=== PATIENT | female | born 1960 | race Caucasian/White ===

== ENCOUNTER 2020-09-19 07:30 | Outpatient (CLI) | payer OTHER, SELFPAY ==
--- NOTE | ~2020-09-19 | DEXA_ITS ---
Bone Density Report Name: Xi Bennett Age: 60 Sex: Female Ethnicity: White Date of : 1960 Indication: osteopenia; monitoring treatment; height loss; hysterectomy; Referring Provider: Kathleen, Rita Foss Study: Bone densitometry was performed. Exam Date: September 19, 2020 Accession number: [id number] Bone Density: Region BMD T-score Z-score Classification AP Spine (L1-L4) 0.810 -2.2 -0.6 Osteopenia Femoral Neck (Left) 0.760 -0.8 0.6 Normal Total Hip (Left) 0.852 -0.7 0.3 Normal Total Hip Bilateral Avg 0.823 -0.9 0.1 Normal Femoral Neck (Right) 0.664 -1.7 -0.3 Osteopenia Total Hip (Right) 0.792 -1.2 -0.2 Osteopenia World Health Organization criteria for BMD impression classify patients as: Normal (T-score at or above -1.0), Osteopenia (T-score between -1.0 and -2.5), or Osteoporosis (T-score at or below -2.5). 10-year Fracture Risk: FRAX not reported because: Treated for osteoporosis Previous Exams: Region Exam Age BMD T-score BMD Change BMD Change Date g/cm2 vs Baseline vs Previous AP Spine(L1-L4) 09/19/2020 60 0.810 -2.2 0.040(5.2%)# 0.027(3.5%)* 07/08/2017 56 0.783 -2.4 0.013(1.6%)# -0.040(-4.9%)* 05/02/2015 54 0.824 -2.0 0.053(6.9%)# 0.053(6.9%)# 03/08/2013 52 0.771 -2.5 Total Hip(Left) 09/19/2020 60 0.852 -0.7 -0.015(-1.8%)# 0.010(1.2%) 07/08/2017 56 0.841 -0.8 -0.026(-2.9%)# -0.029(-3.3%)* 05/02/2015 54 0.870 -0.6 0.004(0.4%)# 0.004(0.4%)# 03/08/2013 52 0.867 -0.6 Total Hip(Right) 09/19/2020 60 0.792 -1.2 -0.017(-2.2%)# -0.003(-0.4%) 07/08/2017 56 0.795 -1.2 -0.014(-1.8%)# -0.019(-2.3%) 05/02/2015 54 0.814 -1.1 0.004(0.5%)# 0.004(0.5%)# 03/08/2013 52 0.810 -1.1 *Denotes significance at 95% confidence level, LSC for AP Spine = 0.022 g/cm2, LSC for Total Hip = 0.027 g/cm2 Clinical Information Provided by Patient: Is being treated for osteoporosis Has used the following medications: Evista (i.e. raloxifene), Vitamin D, Calcium Has the following medical conditions: Hysterectomy Patient maximum height was 68 Menopause Age: 40 No regular weight bearing exercise Onset of menses at age 11 Number of children 0 Impression: The patient has low bone mass, based on the Total Spine T-score. No significant bone loss was observed. Discussion: PATIENT UNDER TREATMENT WITH NO SIGNIFICANT BMD LOSS SINCE LAST EXAM. In an untreated patient, BMD typically dec
== END 2020-09-19 07:31 | disposition home or self-care (01) ==
PROVIDERS: PCP Internal Medicine; Visit Provider Nurse Practitioner Obstetrics & Gynecology
DX: Z13.820 Encounter for screening for osteoporosis (principal); M85.88 Other specified disorders of bone density and structure, other site; M85.851 Other specified disorders of bone density and structure, right thigh
CPT/HCPCS: 77080

== ENCOUNTER 2020-10-18 07:30 | Outpatient (CLI) | payer OTHER, SELFPAY ==
--- NOTE | ~2020-10-18 | MM_ITS ---
EXAMINATION: MM screening [facility] BI w marija HISTORY: Screening mammogram TECHNIQUE: Craniocaudal and mediolateral oblique 3-D tomosynthesis images were obtained and synthetic 2-D images were generated. CAD analysis was submitted and interpreted. COMPARISON: 08/10/2019, 08/02/2018, 07/08/2017 BREAST PARENCHYMAL COMPOSITION: The breasts are almost entirely fatty. FINDINGS: There is no evidence of suspicious mass, calcification, or architectural distortion to sugg est malignancy in either breast. There has been no suspicious interval change. IMPRESSION: 1. No mammographic evidence of malignancy. 2. Recommend routine screening mammography in one year. BI-RADS Category 1: Negative Reviewed, dictated and finalized at location A.
== END 2020-10-18 07:31 | disposition home or self-care (01) ==
LOC: ANHIMG 07:35
PROVIDERS: PCP Internal Medicine; Visit Provider Nurse Practitioner Obstetrics & Gynecology
DX: Z12.31 Encounter for screening mammogram for malignant neoplasm of breast (principal)
CPT/HCPCS: 77063; 77067

== ENCOUNTER 2021-10-06 17:06 | Outpatient (CLI) | payer OTHER, SELFPAY ==
--- NOTE | ~2021-10-06 | XR_ITS ---
EXAMINATION: XR knee LT min 4V DATE: 10/06/2021 17:38 INDICATION: Right knee pain TECHNIQUE: Four views of the right knee were obtained. COMPARISON: None. FINDINGS: Alignment is normal. No fracture or osteochondral lesion. There is mild tricompartmental os teoarthritis characterized by tiny marginal osteophytes. There is moderate narrowing of the lateral c ompartment. Soft tissues are unremarkable. IMPRESSION: 1. Osteoarthritis without acute osseous abnormality. Reviewed, dictated and finalized at location B.
--- NOTE | ~2021-10-06 | XR_ITS ---
EXAMINATION: XR knee RT min 4V DATE: 10/06/2021 17:38 INDICATION: Right knee pain TECHNIQUE: Four views of the right knee were obtained. COMPARISON: None. FINDINGS: Alignment is normal. No fracture or osteochondral lesion. There is mild tricompartmental os teoarthritis characterized by tiny marginal osteophytes. There is moderate narrowing of the lateral c ompartment. A moderate-sized joint effusion is present. Soft tissues are unremarkable. IMPRESSION: 1. Osteoarthritis without acute osseous abnormality. Reviewed, dictated and finalized at location B.
== END 2021-10-06 17:07 | disposition home or self-care (01) ==
PROVIDERS: PCP Internal Medicine; Visit Provider Internal Medicine
DX: M25.561 Pain in right knee (principal); M25.562 Pain in left knee; G89.29 Other chronic pain; M17.0 Bilateral primary osteoarthritis of knee
CPT/HCPCS: 73564

== ENCOUNTER 2021-12-12 07:22 | Outpatient (CLI) | payer OTHER, SELFPAY ==
--- NOTE | ~2021-12-12 | MM_ITS ---
EXAMINATION: MM screening [facility] w marija HISTORY: Screening mammogram TECHNIQUE: Craniocaudal and mediolateral oblique 3-D tomosynthesis images were obtained and synthetic 2-D images were generated. CAD analysis was submitted and interpreted. COMPARISON: 10/18/2020, 08/10/2019, 08/02/2018 bilateral screening mammogram examinations BREAST PARENCHYMAL COMPOSITION: The breasts are almost entirely fatty. FINDINGS: 2 small stable circumscribed opacities in the mid to upper outer right breast, consistent w ith a small stable benign probable intramammary lymph nodes. There is no evidence of suspicious mass, calcification, or architectural distortion to suggest malignancy in either breast. There has been no suspicious interval change. IMPRESSION: 1. No mammographic evidence of malignancy. 2. Recommend routine screening mammography in one year. BI-RADS Category 2: Benign finding(s). Reviewed, dictated and finalized at location A.
== END 2021-12-12 07:23 | disposition home or self-care (01) ==
PROVIDERS: PCP Internal Medicine; Visit Provider Nurse Practitioner Obstetrics & Gynecology
DX: Z12.31 Encounter for screening mammogram for malignant neoplasm of breast (principal)
CPT/HCPCS: 77063; 77067

== ENCOUNTER 2022-04-23 07:27 | Outpatient (CLI) | payer OTHER, SELFPAY ==
--- NOTE | ~2022-04-23 | US_ITS ---
EXAMINATION: US thyroid DATE: 04/23/2022 10:54 INDICATION: Localized swelling, mass or lump at the neck. Difficulty after swallowing. TECHNIQUE: Multiple ultrasound images of the thyroid were obtained. COMPARISON: None. FINDINGS: The right thyroid lobe measures 4.4 x 1.4 x 1.4 cm. The left thyroid lobe measures 5.1 x 1.4 x 1.7 c m. Multiple bilateral thyroid nodules, the majority which are cystic or almost entirely cystic (TI-R ADS 1, benign, no FNA recommended), a few of these with peripheral echogenic foci likely representing inspissated colloid. The largest is a 1.2 cm wider than tall solid hypoechoic nodule with a few inte rnal echogenic foci in the left thyroid lobe, (TI-RADS 5, highly suspicious , FNA if >=1.0 cm, annual followup is >0.5 cm). The largest in the right thyroid is a 1.1 cm mixed solid and cystic hypoechoic nodule with lobular margins and also with few internal echogenic foci also TI-RADS 5. IMPRESSION: 1. Multinodular goiter. Recommend ultrasound-guided biopsy of the 1.2 cm and 1.1 TI RADS 5, right and left thyroid nodules respectively. Reviewed, dictated and finalized at location A. IMPRESSION: 1. Multinodular goiter. Recommend ultrasound-guided biopsy of the 1.2 cm and 1. 1 TI RADS 5, right and left thyroid nodules respectively.
--- NOTE | ~2022-04-23 | XR_ITS ---
EXAMINATION: XR barium swallow DATE: 04/23/2022 08:47 INDICATION: Dysphagia. Localized swelling, mass and lump. Throat feels full. TECHNIQUE: The patient drank thick barium, gas-producing crystals, and thin barium. Fluoroscopic spot radiographs of the hypopharynx and esophagus were obtained. Fluoroscopy exposure time was 1.6 minut es. COMPARISON: None. FINDINGS: The pharynx is symmetric and without evidence of mass lesion or mucosal irregularity. The e sophagus is normal without mass or stricture. Esophageal motility is normal. There is no hiatal herni a. There was no gastroesophageal reflux with provocative maneuvers. IMPRESSION: 1. Normal esophagram. Reviewed, dictated and finalized at location A. IMPRESSION: 1. Normal esophagram.
== END 2022-04-23 07:28 | disposition home or self-care (01) ==
PROVIDERS: PCP Internal Medicine; Visit Provider Internal Medicine
DX: R22.1 Localized swelling, mass and lump, neck (principal); R13.10 Dysphagia, unspecified; E04.2 Nontoxic multinodular goiter
CPT/HCPCS: 74220; 76536

== ENCOUNTER 2022-05-11 09:18 | Outpatient (CLI) | payer OTHER, SELFPAY ==
--- NOTE | ~2022-05-11 | US_ITS ---
EXAMINATION: US FNA w image guidance DATE: 05/11/2022 10:26 INDICATION: Nontoxic multinodular goiter with bilateral TI-RADS 5 thyroid nodules TECHNIQUE: A time-out was performed to verify the patient's name, date of , and procedure to be performed . The procedure and its benefits and risks were discussed with the patient. Risks specifically discus sed included bleeding and infection. The patient understood the risks and agreed to proceed. The neck was prepped and draped in the usual sterile manner. Attention was first turned to the left thyroid n odule 3 mL 1% lidocaine was used for local anesthesia. 6 passes were made with a 25G needle into the lesion. Appropriate needle location was documented with continuous sonographic guidance. Attention was then turned to the left thyroid nodule. An additional 2 mm of 1% lidocaine was used for local ane sthesia. 6 passes were made with a 25G needle into the lesion. Appropriate needle location was docu mented with continuous sonographic guidance. Sterile bandages were applied. There were no immediate complications. FINDINGS: Grayscale ultrasound images demonstrate biopsy needles advanced into first a 1.3 cm predominantly grant id hypoechoic nodule with echogenic foci in the left thyroid lobe. Subsequent images demonstrate biop sy needle advanced into a 1.3 cm right thyroid nodule with similar imaging features. IMPRESSION: 1. Successful ultrasound-guided fine needle aspiration of a 1.3 cm TI-RADS 5 left thyroid nodule. 2. Successful ultrasound-guided fine needle aspiration of a 1.3 cm TI-RADS 5 right thyroid nodule. Reviewed, dictated and finalized at location A. IMPRESSION: 1. Successful ultrasound-guided fine needle aspiration of a 1.3 cm TI-RADS 5 l eft thyroid nodule. 2. Successful ultrasound-guided fine needle aspiration of a 1.3 cm TI-RADS 5 ri ght thyroid nodule.
== END 2022-05-11 09:19 | disposition home or self-care (01) ==
PROVIDERS: PCP Internal Medicine; Visit Provider Otolaryngology
DX: E04.2 Nontoxic multinodular goiter (principal)
CPT/HCPCS: 10005; 88173; 88305

== ENCOUNTER 2023-02-05 07:21 | Outpatient (CLI) | payer OTHER, SELFPAY ==
--- NOTE | ~2023-02-05 | MM_ITS ---
EXAMINATION: MM screening [facility] w marija HISTORY: Screening TECHNIQUE: Craniocaudal and mediolateral oblique 3-D tomosynthesis images were obtained and synthetic 2-D images were generated. CAD analysis was submitted and interpreted. COMPARISON: Comparison to multiple prior studies sequentially, with oldest reviewed study dated 04/19. BREAST PARENCHYMAL COMPOSITION: The breasts are almost entirely fatty. FINDINGS: There is no evidence of suspicious mass, calcification, or architectural distortion to sugg est malignancy in either breast. There has been no suspicious interval change. IMPRESSION: 1. No mammographic evidence of malignancy. 2. Recommend routine screening mammography in one year. BI-RADS Category 1: Negative Reviewed, dictated and finalized at location A.
== END 2023-02-05 07:22 | disposition home or self-care (01) ==
LOC: ANHIMG 07:22
PROVIDERS: PCP Internal Medicine; Visit Provider Nurse Practitioner Obstetrics & Gynecology
DX: Z12.31 Encounter for screening mammogram for malignant neoplasm of breast (principal)
CPT/HCPCS: 77063; 77067

== ENCOUNTER 2023-04-30 07:38 | Outpatient (CLI) | payer OTHER, SELFPAY ==
--- NOTE | ~2023-04-30 | US_ITS ---
EXAMINATION: US thyroid DATE: 04/30/2023 08:33 INDICATION: Nontoxic multinodular goiter. TECHNIQUE: Multiple ultrasound images of the thyroid were obtained. COMPARISON: Thyroid ultrasound 04/23/2022, 05/11/2022 FINDINGS: The right thyroid lobe measures 4.1 x 1.4 x 1.3 cm. The left thyroid lobe measures 4.3 x 1.3 x 1.5 c m. The thyroid demonstrates heterogeneous echogenicity. In the left thyroid lobe, there is an 11 mm solid, hypoechoic, wider than tall nodule with lobulated margin without echogenic foci (TI-RADS TR4). In the right thyroid lobe, there is a 12 mm solid, hypoechoic, wider than tall nodule with lobulated margin without echogenic foci (TR4). These nodules are stable from 05/11/2022 when biopsy was benign . In the left thyroid lobe, there is a 10 mm mixed cystic and solid, hypoechoic, wider than tall nodu le with ill-defined margin without echogenic foci (TR3). IMPRESSION: 1. Multinodular goiter, likely not clinically significant. No follow-up is needed. Reviewed, dictated and finalized at location A. IMPRESSION: 1. Multinodular goiter, likely not clinically significant. No follow-up is need ed.
== END 2023-04-30 07:39 | disposition home or self-care (01) ==
PROVIDERS: PCP Internal Medicine; Referring Provider Otolaryngology; Visit Provider Internal Medicine
DX: E04.2 Nontoxic multinodular goiter (principal); R22.1 Localized swelling, mass and lump, neck
CPT/HCPCS: 76536

== ENCOUNTER 2023-05-03 08:07 | Emergency (ER) | payer OTHER, SELFPAY ==
--- NOTE | 2023-05-03 08:09 | ED.EYEPROB ---
HPI - Eye Problem General Chief complaint: Eye Problems Stated complaint: L EYE INJURY Time Seen by Provider: 05/03/23 08:08 Source: patient Mode of arrival: ambulatory Limitations: no limitations History of Present Illness HPI Narrative: Patient is a 62-year-old female that presents with left eye irritation and watering after hibiscus graham grazed eye yesterday.States it was watering a lot more yesterday and denies any changes in vision. Reports there is also some redness now but still denies any vision changes. States the graham did not poke eye. Reports pain worsened when eye was shut. Denies any drainage from eye, fever, chills. Related Data Home Medications Medication Instructions Recorded Confirmed calcium carbonate 600 mg-vitamin 1 tablet PO DAILY 09/04/19 11/03/22 D3 20 mcg (800 unit) chewable tablet (Caltrate 600 plus D) glucosamine-chondroitin 250 mg-200 2 tablet PO TID 09/04/19 11/03/22 mg tablet (Osteo Bi-Flex) multivitamin 1 tablet PO DAILY 09/04/19 11/03/22 rimegepant 75 mg disintegrating 75 mg PO ONCE PRN 09/05/20 11/03/22 tablet (Nurtec ODT) Allergies Allergy/AdvReac Type Severity Reaction Status Date / Time No Known Allergies Allergy Verified 05/03/23 08:26 Review of Systems Review of Systems: All systems reviewed & are unremarkable except as noted in HPI and below Constitutional: Constitutional: Denies body ache(s), Denies fever(s), Denies headache(s), Denies malaise and Denies weakness Eyes: Eyes: Denies blurry vision, Denies eye discharge, Reports irritation, Denies itchy eyes, Denies loss of vision and Reports eye pain ENT: Denies otalgia, Denies headache(s), Denies nasal discharge, Denies sinus pain and Denies sore throat Cardiovascular: Cardiovascular: Denies chest pain, Denies irregular heart rhythm and Denies dyspnea Respiratory: Respiratory: Denies dyspnea Gastrointestinal: Gastrointestinal: Denies abdominal pain, Denies diarrhea, Denies nausea and Denies vomiting Musculoskeletal: Musculoskeletal: Denies back pain, Denies myalgias and Denies arthralgias Integumentary/Breasts: Skin/Breast: Denies pruritus and Denies rash Neurologic: Denies headache(s), Denies loss of vision and Denies weakness Psychiatric: Psychiatric: Reports no additional psychiatric complaints Allergic/Immunologic: Allergic/Immunologic: Reports itchy eyes PMFSH Past Medical History Medical History Arthritis BMI 26.0-26.9,adult BMI 27.0-27.9,adult Chronic headache Chronic intractable headache Colon cancer screening DJD (degenerative joint disease) of knee Encounter for preventive health examination Encounter for routine adult health examination without abnormal findings Fullness of neck High cholesterol Knee pain, bilateral Left knee DJD Migraines On equipment operator intermodal yard drug therapy Osteopenia Osteoporosis Right knee DJD Vitamin D deficiency Surgical History Surgical History H/O sinus surgery History of hysterectomy History of laparoscopic cholecystectomy Family History Family History Mother Family history of congestive heart failure Father Acute myocardial infarction Family history of mental disorder Other Arthritis Family history of heart disease in male family member before age 55 Heart disease Hypertension Social History Social History Smoking status: Never smoker Second hand tobacco smoke exposure: No Alcohol intake: current Drinks per week: 2 Substance use: never Lack of Transportation: No Lack of Food: Never True Current Housing: I Do Not Have Housing Concerned About Future Housing: No Difficulty Paying Gas/Electric Bills: No Difficulty Paying for Meds: No Currently Unemployed: No Education: Master's Degree or Higher Difficulty w
[2023-05-03 08:16] VITALS: BP 139/71; PULSE 91; RESP 16; TEMP 36.3; O2SAT 100
== END 2023-05-03 08:42 | disposition home or self-care (01) ==
PROVIDERS: Emergency Provider Nurse Practitioner Family; PCP Internal Medicine
DX: H57.12 Ocular pain, left eye (principal); M19.90 Unspecified osteoarthritis, unspecified site; E78.00 Pure hypercholesterolemia, unspecified; M17.0 Bilateral primary osteoarthritis of knee; M81.0 Age-related osteoporosis without current pathological fracture; M85.80 Other specified disorders of bone density and structure, unspecified site
CPT/HCPCS: 99213; A9270; G0463

== ENCOUNTER 2024-02-09 15:44 | Outpatient (CLI) | payer OTHER, SELFPAY ==
--- NOTE | ~2024-02-09 | MM_ITS ---
EXAMINATION: MM screening [facility] w marija HISTORY: Screening TECHNIQUE: Craniocaudal and mediolateral oblique 3-D tomosynthesis images were obtained and synthetic 2-D images were generated. CAD analysis was submitted and interpreted. COMPARISON: Comparison to multiple prior studies sequentially, with oldest reviewed study dated 06/19. BREAST PARENCHYMAL COMPOSITION: Not Dense: Breast are almost entirely fatty. FINDINGS: There is no evidence of suspicious mass, calcification, or architectural distortion to sugg est malignancy in either breast. There has been no suspicious interval change. IMPRESSION: 1. No mammographic evidence of malignancy. 2. Recommend routine screening mammography in one year. BI-RADS Category 1: Negative Reviewed, dictated and finalized at location B.
== END 2024-02-09 15:45 | disposition home or self-care (01) ==
LOC: ANHIMG 15:45
PROVIDERS: PCP Internal Medicine; Visit Provider Nurse Practitioner
DX: Z12.31 Encounter for screening mammogram for malignant neoplasm of breast (principal)
CPT/HCPCS: 77063; 77067

== ENCOUNTER 2024-06-05 08:43 | Outpatient (CLI) | payer OTHER, SELFPAY ==
--- NOTE | ~2024-06-05 | US_ITS ---
EXAMINATION: US thyroid DATE: 06/05/2024 10:24 INDICATION: Nontoxic multinodular goiter. TECHNIQUE: Multiple ultrasound images of the thyroid were obtained. COMPARISON: Ultrasound 04/30/2023, 04/23/2022 FINDINGS: The right thyroid lobe measures 3.9 x 1.4 x 1.4 cm. The left thyroid lobe measures 4.0 x 1.5 x 1.4 c m. In the left thyroid lobe, there is a 12 mm mixed cystic and solid, hypoechoic, wider than tall no dule with lobulated margin without echogenic foci (TI-RADS TR4). In the right thyroid lobe, there is a 6 mm mixed cystic and solid, hypoechoic, wider than tall nodule with ill-defined margin without ech ogenic foci (TR3). In the left thyroid lobe, there is a 6 mm solid, hypoechoic, wider than tall nodul e with smooth margin without echogenic foci (TR4). In the left thyroid lobe, there is an 11 mm solid, hypoechoic, wider than tall nodule with lobulated margin without echogenic foci (TR4), stable from 1 when biopsy was benign. In the right thyroid lobe, there is a 15 mm solid, hypoechoic, wider than tall nodule with margins without echogenic foci (TR4), stable from 05/11/22 when biopsy was jose roberto gn. IMPRESSION: 1. Multinodular goiter. Thyroid ultrasound is recommended in one year. Reviewed, dictated and finalized at location A. BABY
== END 2024-06-05 08:44 | disposition home or self-care (01) ==
PROVIDERS: PCP Internal Medicine; Visit Provider Internal Medicine
DX: E04.2 Nontoxic multinodular goiter (principal); R22.1 Localized swelling, mass and lump, neck
CPT/HCPCS: 76536

== ENCOUNTER 2025-06-11 14:32 | Outpatient (CLI) | payer OTHER, SELFPAY ==
--- NOTE | ~2025-06-11 | US_ITS ---
EXAMINATION: US thyroid DATE: 06/11/2025 14:48 INDICATION: Multinodular goiter, follow-up. Negative prior biopsy in 2021. TECHNIQUE: Multiple ultrasound images of the thyroid were obtained. COMPARISON: Ultrasound thyroid dated 04/23/2022. FINDINGS: The right thyroid lobe measures 3.7 x 1.4 x 1.2 cm. The left thyroid lobe measures 3.6 x 1.8 x 1.2 cm. Multiple bilateral thyroid nodules are noted and are stable. Dominant right thyroid nodule measuring 1.4 x 1 cm, isoechoic to hypoechoic. Dominant left thyroid nodule 1.2 x 0.8 cm is also stable, hypoechoic in nature. Remaining nodules are smaller in size. IMPRESSION: 1. Stable multiple thyroid nodules as described above with no significant change from 04/23/2022. Annual follow-up recommended. TI-RADS Category 2 Reviewed, dictated and finalized at location T. SHER HAND IMPRESSION: 1. Stable multiple thyroid nodules as described above with no significant lewis e from 04/23/2022. Annual follow-up recommended. TI-RADS Category 2
== END 2025-06-11 14:33 | disposition home or self-care (01) ==
LOC: GOSHIMG 14:33
PROVIDERS: PCP Internal Medicine; Visit Provider Internal Medicine
DX: E04.2 Nontoxic multinodular goiter (principal)
CPT/HCPCS: 76536

== ENCOUNTER 2025-06-15 08:25 | Outpatient (CLI) | payer OTHER, SELFPAY ==
--- NOTE | ~2025-06-15 | MM_ITS ---
EXAMINATION: MM screening [facility] BI w marija HISTORY: Screening TECHNIQUE: Craniocaudal and mediolateral oblique 3-D tomosynthesis images were obtained and synthetic 2-D images were generated. CAD analysis was submitted and interpreted. COMPARISON: Comparison to multiple prior studies sequentially, with oldest reviewed study dated 08/02/2018. BREAST PARENCHYMAL COMPOSITION: Not dense: There are scattered areas of fibroglandular density. FINDINGS: There is no evidence of suspicious mass, calcification, or architectural distortion to suggest malignancy in either breast. There has been no suspicious interval change. IMPRESSION: 1. No mammographic evidence of malignancy. 2. Recommend routine screening mammography in one year. BI-RADS Category 1: Negative Reviewed, dictated and finalized at location I. TER HELPER
== END 2025-06-15 08:26 | disposition home or self-care (01) ==
LOC: ANHFOHIMG 08:28
PROVIDERS: PCP Internal Medicine; Visit Provider Nurse Practitioner
DX: Z12.31 Encounter for screening mammogram for malignant neoplasm of breast (principal)
CPT/HCPCS: 77063; 77067